=== PATIENT | female | born 2000 | race Caucasian/White ===

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

== ENCOUNTER → 2020-08-03 | Emergency (ER) | payer SELFPAY ==
[~2020-08-03] VITALS: Ht 182.9 cm; Wt 98.2 kg
[~2020-08-03] MED LIST: DIPH25CA58 PO; IV NORMAL SALINE 1,000ML 1,000 ML IV ONE; SULF1TAB24 PO; diphenhydrAMINE 50 MG/ML VIAL IVP ONE
[2020-08-03 16:56] LABS: BASO % 0 % (0-3); EOS # 0.1 x10^3/uL (0.0-0.7); EOS % 2 % (0-3); HEMATOCRIT 41.2 % (36.0-47.0); HEMOGLOBIN 13.4 g/dL (12.0-15.5); LYMPH # 0.6 x10^3/uL (1.0-4.8); LYMPH % 16 % (24-48); MEAN CORPUSCULAR HEMOGLOBIN 26 pg (25-35); MEAN CORPUSCULAR HGB CONC 33 g/dL (31-37); MEAN CORPUSCULAR VOLUME 80 fL (79-100); MONO # 0.2 x10^3/uL (0.0-1.1); MONO % 5 % (0-9); NEUT % 77 % (31-73); PLATELET COUNT 198 x10^3/uL (140-400); RED BLOOD COUNT 5.17 x10^6/uL (3.50-5.40); RED CELL DISTRIBUTION WIDTH 14.4 % (11.5-14.5); WHITE BLOOD COUNT 3.9 x10^3/uL (4.0-11.0)
[2020-08-03 17:12] LABS: CALCIUM 8.8 mg/dL (8.5-10.1); CREATININE 0.9 mg/dL (0.6-1.0); POTASSIUM 3.5 mmol/L (3.5-5.1)
[2020-08-03 17:18] LABS: ALBUMIN 3.3 g/dL (3.4-5.0); ALBUMIN/GLOBULIN RATIO 0.8 (1.0-1.7); TOTAL BILIRUBIN 0.1 mg/dL (0.2-1.0); TOTAL PROTEIN 7.3 g/dL (6.4-8.2)
[2020-08-03 17:23] LABS: MONONUCLEOSIS PATIENT NEGATIVE (NEGATIVE)
[2020-08-03 19:50] VITALS: BP 130/62
--- NOTE | 2020-08-03 19:54 | PHYS DOC ---
Past History Past Medical History: Asthma, GERD (LIZAUBREY AYALA) Past Surgical History: Tonsillectomy (LIZAUBREY AYALA) Smoking: Non-smoker Alcohol Use: None Drug Use: None (AUBREY HILL JAMIE) Adult General Chief Complaint Chief Complaint: SKIN PROBLEM HPI HPI Patient is a 20 year old female who presents with complaints of hypotension today when she was at her health clinic being seen for an allergic reaction. Patient states that her blood pressures were in the 60s over 40s and they recommended that she go see her doctor for her hypotension. Patient states that when she told her mother this that her mother became alarmed and her mother brought her here to the emergency department to be evaluated for her hypotension. Patient states that she has been treated with a 10-day regimen of Bactrim DS for a pilonidal cyst and she has 1 dose left to take tonight. Patient states that her complaints is just low blood pressure however she does have severe itching and a flushed feeling and skin burning feeling that started this morning when she woke up but she states she has been given prednisone and Zofran from her health care clinic and diagnosed with an allergic reaction. Patient denies any recent fever or chills, visual changes, nasal congestion cough or shortness of breath. Patient states she does not have any chest pains, edema, abdominal pain, nausea, vomiting, diarrhea or constipation. Patient states she does not feel as if her throat is closing off and although she does feel a little anxious from the allergic reaction. Patient states she has not taken anything for her allergic reaction and has not started the prednisone or Zofran that was prescribed to her from the urgent care clinic today. Patient denies any urinary problems, vaginal discharge or STI concerns. Patient denies any back pains pain in her joints. Patient does states she has a skin rash all over from her head down to her feet. Patient denies any skin weeping. Patient states that this is severely itchy and feels very flushed and warm to her. Patient denies any headaches, focal weaknesses, or sensory changes. Patient denies any increased thirst or urination. Patient denies any swelling of her glands, depressions, homicidal or suicidal ideation. Patient states that she does not wish to be tested for the COVID-19 virus and does not feel she is having any Covid symptoms today. 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 Patient also states that her boyfriend was diagnosed for mono this past week and fears she might have mono. (AUBREY HILL APRN) Review of Systems Review of Systems Constitutional: Denies fever or chills Eyes: Denies change in visual acuity, redness, or eye pain HENT: Denies nasal congestion or sore throat Respiratory: Denies cough or shortness of breath Cardiovascular: Denies chest pain, extremity swelling, or edema. GI: Denies abdominal pain, nausea, vomiting, bloody stools or diarrhea : Denies dysuria or hematuria [] Musculoskeletal: Denies back pain or joint pain [] Integument: Complains of a rash from her head down to her feet and all around her extremities and her front and back trunk and in her groin area, denies any open or weeping lesions. Reports this rash is extremely itchy, states this rash is not painful. Neurologic: Denies headache, focal weakness or sensory changes [] Endocrine: Denies polyuria or polydipsia [] Psychiatric: Denies homicidal or suicidal ideations did denies depression, states that her allergic reaction is making her feel anxious. All other systems were reviewed and found to be within normal limits, except as documented in this note. (AUBREY HILL APRN) Current Medications Current Medications Current Medications Medications (Trade) Dose Ordered Sig/Sade Start Time Stop Time Status Last Admin Dose Admin Diphenhydramine HCl (Benadryl) 25 mg 1X ONCE 08/03/20 16:45 08/03/20 16:46 DC 08/03/20 16:50 25 MG Sodium Chloride 1,000 ml @ 1,000 mls/hr 1X ONCE 08/03/20 16:30 08/03/20 17:29 DC 08/03/20 16:30 1,000 MLS/HR (AUBREY HILL APRN) Allergies Allergies Allergies Coded Allergies Type Severity Reaction Last Updated Verified sulfamethoxazole Allergy Unknown 08/03/20 Yes trimethoprim Allergy Unknown 08/03/20 Yes (AUBREY HILL APRN) Physical Exam Physical Exam Constitutional: Well developed, well nourished, no acute distress, non-toxic appearance. [] HENT: Normocephalic, atraumatic, bilateral external ears normal, oropharynx moist, no oral exudates, nose normal. [] Eyes: PERRLA, EOMI, conjunctiva normal, no discharge. [] Neck: Normal range of motion, no tenderness, supple, no stridor. [] Cardiovascular:Heart rate regular rhythm, no murmur [] Lungs & Thorax: Bilateral breath sounds clear to auscultation [] Abdomen: Bowel sounds normal, soft, no tenderness, no masses, no pulsatile masses. [] Skin: Warm, dry, no erythema, no rash. [] Back: No tenderness, no CVA tenderness. [] Extremities: No tenderness, no cyanosis, no clubbing, ROM intact, no edema. [] Neurologic: Alert and oriented X 3, normal motor function, normal sensory function, no focal deficits noted. [] Psychologic: Affect normal, judgement normal, mood normal. [] (AUBREY HILL APRN) Current Patient Data Vital Signs Vital Signs Date Time Temp Pulse Resp B/P (MAP) Pulse Ox O2 Delivery O2 Flow Rate FiO2 08/03/20 15:08 99.3 112 20 137/75 (95) 100 Lab Results Laboratory Tests Test 08/03/20 16:34 08/03/20 18:26 White Blood Count 3.9 x10^3/uL (4.0-11.0) L Red Blood Count 5.17 x10^6/uL (3.50-5.40) Hemoglobin 13.4 g/dL (12.0-15.5) Hematocrit 41.2 % (36.0-47.0) Mean Corpuscular Volume 80 fL (79-100) Mean Corpuscular Hemoglobin 26 pg (25-35) Mean Corpuscular Hemoglobin Concent 33 g/dL (31-37) Red Cell Distribution Width 14.4 % (11.5-14.5) Platelet Count 198 x10^3/uL (140-400) Neutrophils (%) (Auto) 77 % (31-73) H Lymphocytes (%) (Auto) 16 % (24-48) L Monocytes (%) (Auto) 5 % (0-9) Eosinophils (%) (Auto) 2 % (0-3) Basophils (%) (Auto) 0 % (0-3) Neutrophils # (Auto) 3.0 x10^3uL (1.8-7.7) Lymphocytes # (Auto) 0.6 x10^3/uL (1.0-4.8) L Monocytes # (Auto) 0.2 x10^3/uL (0.0-1.1) Eosinophils # (Auto) 0.1 x10^3/uL (0.0-0.7) Basophils # (Auto) 0.0 x10^3/uL (0.0-0.2) Sodium Level 133 mmol/L (136-145) L Potassium Level 3.5 mmol/L (3.5-5.1) Chloride Level 100 mmol/L (98-107) Carbon Dioxide Level 20 mmol/L (21-32) L Anion Gap 13 (6-14) Blood Urea Nitrogen 10 mg/dL (7-20) Creatinine 0.9 mg/dL (0.6-1.0) Estimated GFR (Cockcroft-Gault) 79.0 BUN/Creatinine Ratio 11 (6-20) Glucose Level 107 mg/dL (70-99) H Lactic Acid Level 1.0 mmol/L (0.4-2.0) Calcium Level 8.8 mg/dL (8.5-10.1) Total Bilirubin 0.1 mg/dL (0.2-1.0) L Aspartate Amino Transferase (AST) 44 U/L (15-37) H Alanine Aminotransferase (ALT) 58 U/L (14-59) Alkaline Phosphatase 63 U/L (46-116) Total Protein 7.3 g/dL (6.4-8.2) Albumin 3.3 g/dL (3.4-5.0) L Albumin/Globulin Ratio 0.8 (1.0-1.7) L Heterophil Agglutinins Negative (NEGATIVE) POC Urine HCG, Qualitative hcg negative (Negative) (AUBREY HILL APRN) EKG EKG [] (AUBREY HILL APRN) Radiology/Procedures Radiology/Procedures [] (AUBREY HILL APRN) Heart Score Risk Factors: Risk Factors: DM, Current or recent (<one month) smoker, HTN, HLP, family hi story of CAD, obesity. Risk Scores: Risk Factors: DM, Current or recent (<one month) smoker, HTN, HLP, family history of CAD, obesity. (AUBREY HILL APRN) Course & Med Decision Making Course & Med Decision Making Pertinent Labs and Imaging studies reviewed. (See chart for details) 20-year-old female reported to the emergency department complaining of hypotension today while she was at her urgent care appointment. Patient states her pressures were in the 60s over 40s and it was recommended that she see her doctor for her low blood pressure. Patient states she was at the urgent care clinic because of allergic reaction and was treated with a prescription for prednisone and Zofran. Patient's vital signs were stable per ED nursing staff I repeated her vital signs with a temp of 97.0 oral, heart rate 90, respirations 18 and nonlabored, blood pressure on left upper extremity per noninvasive blood pressure was 117/70. Physical examination was concerning for a hypersensitivity reaction versus Snow-Jesse syndrome versus DIHS versus DRESS reaction. Patient's presentation resembles "red man" syndrome however patient was not given vancomycin, the patient did not show a Nikolsky sign. Given that patient is on last dose of a sulfa medication, a work-up was started in the emergency department. The patient did not have a Nikolsky sign, labs were equivocal making this unlikely as Snow-Jesse syndrome the patient was given 25 mg of IV Benadryl in the emergency department along with a liter of saline which resolved most of her skin redness, patient states her itching had resolved. This allergic reaction most likely to her sulfa medication is most likely hypersensitivity reaction to the drug sulfa. Recommended to patient not to take her prednisone, may continue to take her Zofran if nauseated otherwise do not take Zofran, may take Benadryl for itching, it was recommended that she no longer take her last dose of Bactrim and to state that she is allergic to sulfa medications in the future when asked about allergies to medicines. Patient remained vital signs stable on reexamination, patient gave verbal understanding of discharge instructions, patient will follow up with her primary care physicia n regarding her pilonidal cyst evaluation, the ER evaluation noted a healing pilonidal cyst that was not completely healed at this time. However there was no drainage noted no foul odor noted coming from pilonidal cyst. Patient states she will see her doctor tomorrow, patient had no further questions or concerns, patient discharged home without incident. (AUBREY HILL APRN) Course & Med Decision Making I have reviewed the PA/NEMATOLOGIST's note and plan of care. I was available for consultation as needed during the patient's visit in the emergency department. I agree with the clinical impression, plan, and disposition. I individually examined patient on numerous occasions throughout ER visit, improvement to ER intervention noted. Negative Nikolsky sign, no concern for Snow-Jesse syndrome or other concerning pathologic dermatologic conditions Patient maintaining airway, hemodynamically stable, symptoms vastly improved with ER intervention provided. Patient to immediately discontinue Bactrim use and have close PCP follow-up in upcoming 48 to 72 hours for repeat examination. Strict return precautions were discussed with good understanding prior to departure (BENITO AVENDAÑO DO) Dragon Disclaimer Dragon Disclaimer This electronic medical record was generated, in whole or in part, using a voice recognition dictation system. (AUBREY HILL APRN) Departure Departure: Impression: Primary Impression: Drug-induced hypersensitivity reaction Disposition: 01 DC HOME SELF CARE/HOMELESS Condition: IMPROVED Referrals: FLORECITA CURRY MD (PCP) Additional Instructions: You have had an allergic reaction to what I believe was your sulfa medication Bactrim. Do not take any more of the antibiotic for your pilonidal cyst. From now on you should say that you are allergic to sulfa medications. Continue to take Benadryl for your itching and allergic reaction symptoms. You were given prednisone from the urgent care center. Do not take this medication. Follow-up with your doctor as needed. Return to the emergency department for worsening symptoms or further concerns. Scripts Diphenhydramine Hcl (BENADRYL) 25 Mg Capsule 1 CAP PO PRN Q4-6HRS for ALLERGIC REACTION SYMPTOMS for 30 Days, #20 CAP 0 Refills Prov: AUBREY HILL APRN 08/03/20 Problem Qualifiers Primary Impression: Drug-induced hypersensitivity reaction Encounter type: initial encounter Qualified Codes: T78.40XA - Allergy, unspecified, initial encounter AUBREY HILL APRN Aug 03, 2020 19:54 BENITO AVENDAÑO DO Aug 04, 2020 06:34
== END ==
LOC: ER 14:31
DX: I95.9 Hypotension, unspecified (principal); R21 Rash and other nonspecific skin eruption; T36.8X5A Adverse effect of other systemic antibiotics, initial encounter; J45.909 Unspecified asthma, uncomplicated; K21.9 Gastro-esophageal reflux disease without esophagitis; Z88.1 Allergy status to other antibiotic agents; Z88.2 Allergy status to sulfonamides; Y92.89 Other specified places as the place of occurrence of the external cause
CPT/HCPCS: 36415; 80053; 81025; 83605; 84443; 85025; 86308; 86705; 86709; 86803; 87040; 87340; 96361; 96374; 99283; J1200; J7030

== ENCOUNTER → 2021-09-13 | Outpatient (CLI) | payer OTHER ==
[2020-08-03 19:50] VITALS: BP 130/62
[~2021-09-13] MED LIST changes: -IV NORMAL SALINE 1,000ML 1,000 ML IV ONE; -diphenhydrAMINE 50 MG/ML VIAL IVP ONE
--- NOTE | 2021-09-13 10:25 | RAD ---
EXAM: Left ankle, 3 views. HISTORY: Pain. COMPARISON: None. FINDINGS: 3 views of the left ankle are obtained. There is no acute fracture, dislocation or subluxat ion. There is lateral predominant ankle soft tissue swelling. There is no osteochondral lesion. IMPRESSION: Lateral soft tissue swelling. No acute osseous finding. Electronically signed by: Mirna Lemus MD (09/13/2021 10:23 AM) [id number]
== END ==
LOC: RAD 09:58
PROVIDERS: ATTEND Nurse Practitioner Family
DX: S99.912A Unspecified injury of left ankle, initial encounter (principal); M79.89 Other specified soft tissue disorders; X58.XXXA Exposure to other specified factors, initial encounter; Y93.89 Activity, other specified; Y92.89 Other specified places as the place of occurrence of the external cause; Y99.8 Other external cause status
CPT/HCPCS: 73610

== ENCOUNTER → 2021-11-25 | Outpatient (CLI) | payer OTHER ==
[2020-08-03 19:50] VITALS: BP 130/62
--- NOTE | 2021-11-25 16:50 | RAD ---
CT abdomen pelvis without contrast dated 11/25/2021. COMPARISON: None. CLINICAL INDICATION: Pain TECHNIQUE: Contiguous axial imaging the abdomen pelvis performed without the administration of IV or oral contra st. One or more of the following individualized dose reduction techniques were utilized for this examinat ion: 1. Automated exposure control 2. Adjustment of the mA and/or kV according to patient size 3. Use of iterative reconstruction technique FINDINGS: Limited images of lung bases are clear. Heart size within normal limits. No pleural or pericardial ef fusion. Solid abdominal viscera not well evaluated in the absence of contrast material. No apparent attenuati on abnormality of the liver or spleen. Pancreas, adrenal glands, gallbladder and kidneys are unremark able. No stone or hydronephrosis. Unopacified GI tract normal in caliber and contour. No focal bowel wall thickening. No inflammatory s tranding in the mesentery. The appendix is normal in caliber. No ascites or lymphadenopathy. Abdomina l aorta normal in caliber. Images the pelvis show nondistended urinary bladder. Uterus and adnexa are unremarkable. No free flui d or lymphadenopathy. Intrauterine contraceptive device in the endometrial canal appears adequately p ositioned. Bone window show no acute findings. IMPRESSION: 1. No acute abnormality of abdomen or pelvis. Normal appendix. 2. No renal stone or hydronephrosis. Electronically signed by: Vish Freitas MD (11/25/2021 4:48 PM) [facility]
== END ==
LOC: CT 16:19
PROVIDERS: ATTEND Nurse Practitioner Family
DX: R10.30 Lower abdominal pain, unspecified (principal); R31.9 Hematuria, unspecified
CPT/HCPCS: 74176